=== PATIENT | male | born 1985 | race American Indian/Alaskan Native ===

== ENCOUNTER 2017-01-01 01:13 | Emergency (ER) | payer SELFPAY ==
[2017-01-01] MEDS ORDERED: NACL 0.9% 1000 ML 1,000 ML IV ONE (01:51)
[2017-01-01 02:35] LABS: Basophils % (Auto) 1.1 % (0.0-1.8); Eosinophils % (Auto) 2.8 % (0.0-4.3); Hemoglobin 14.8 gm/dl (11.8-15.2); Mean Corpuscular HGB Conc 33 % (32-34); Mean Corpuscular Volume 73 fl (84-94); Platelet Count 242 K/mm3 (140-440); Red Cell Distribution Width 15.5 % (13.2-15.2); White Blood Count 4.8 K/mm3 (4.5-11.0)
[2017-01-01 02:46] LABS: INR 0.99 (0.87-1.13); Partial Thromboplastin Time 30.5 Sec. (24.2-36.6)
[2017-01-01 02:50] LABS: Mean Corpuscular Hemoglobin 24 pg (28-32)
[2017-01-01 02:53] LABS: Alanine Aminotransferase 11 units/L (7-56); Albumin 4.1 g/dL (3.9-5); Albumin/Globulin Ratio 1.5 %; Alkaline Phosphatase 58 units/L (35-129); Anion Gap 18 mmol/L; BUN/Creatinine Ratio 13; Blood Urea Nitrogen 17 mg/dL (9-20); Calcium 8.8 mg/dL (8.4-10.2); Carbon Dioxide 23 mmol/L (22-30); Chloride 101.3 mmol/L (98-107); Glucose 152 mg/dL (75-100); Lipase 63 units/L (13-60); Potassium 3.9 mmol/L (3.6-5.0); Sodium 138 mmol/L (137-145); Total Protein 6.8 g/dL (6.3-8.2)
[2017-01-01 08:10] VITALS: BP 128/73
--- NOTE | 2017-01-01 10:20 | Emergency Department Report ---
ED GI Bleed HPI - General Chief complaint: GI Bleed Stated complaint: RECTAL BLEEDING Time Seen by Provider: 01/01/17 10:03 Source: patient Mode of arrival: Ambulatory Limitations: No Limitations - History of Present Illness MD complaint: blood on toilet paper -: Gradual Severity scale (0 -10): 0 Improves with: none Worsens with: none Context: hemorrhoids Associated Symptoms: denies other symptoms. denies: abdominal pain, nausea, vomiting, epistaxis, fever/chills, headaches, loss of appetite, malaise, easy bruising, rash, other bleeding, shortness of breath, syncope, weakness - Related Data Previous Rx's Medication Instructions Recorded Last Taken Type Ibuprofen [Motrin 800 MG tab] 800 mg PO Q8H #30 tablet 09/04/14 Unknown Rx methylPREDNISolone [Medrol] 4 mg PO QAM #1 dosepack 12/17/15 Unknown Rx Phenylephrine HCl/[place] Butter 1 each RC DAILY #10 supp.rect 01/01/17 Unknown Rx [Preparation H Suppository] Allergies Allergy/AdvReac Type Severity Reaction Status Date / Time No Known Allergies Allergy Verified 08/26/14 04:57 ED Review of Systems ROS: Stated complaint: RECTAL BLEEDING Other details as noted in HPI Comment: All other systems reviewed and negative Constitutional: no symptoms reported, see HPI Eyes: as per HPI ENT: as per HPI Respiratory: no symptoms reported, see HPI Cardiovascular: as per HPI Endocrine: no symptoms reported, see HPI Gastrointestinal: as per HPI, other (bright red blood). denies: abdominal pain , nausea, vomiting, diarrhea, constipation, hematemesis, melena, hematochezia Genitourinary: as per HPI Musculoskeletal: as per HPI Skin: as per HPI Neurological: as per HPI Psychiatric: as per HPI Hematological/Lymphatic: as per HPI ED Past Medical Hx - Past Medical History Previous Medical History?: No Additional medical history: Rectal bleeding - Surgical History Past Surgical History?: No - Social History Smoking Status: Never Smoker Substance Use Type: None - Medications Home Medications: Home Medications Medication Instructions Recorded Confirmed Last Taken Type Ibuprofen [Motrin 800 MG tab] 800 mg PO Q8H #30 tablet 09/04/14 Unknown Rx methylPREDNISolone [Medrol] 4 mg PO QAM #1 dosepack 12/17/15 Unknown Rx Phenylephrine HCl/[place] Butter 1 each RC DAILY #10 supp.rect 01/01/17 Unknown Rx [Preparation H Suppository] ED Physical Exam - General Limitations: No Limitations General appearance: alert - Head Head exam: Present: atraumatic - Eye Eye exam: Present: normal appearance - ENT ENT exam: Present: normal exam - Neck Neck exam: Present: normal inspection - Respiratory Respiratory exam: Present: normal lung sounds bilaterally - Cardiovascular Cardiovascular Exam: Present: regular rate - GI/Abdominal GI/Abdominal exam: Present: soft, normal bowel sounds - Rectal Rectal exam: Present: hemorrhoids - exam: Present: normal inspection - Extremities Exam Extremities exam: Present: normal inspection - Back Exam Back exam: Present: normal inspection, full ROM. Absent: tenderness, CVA tenderness (R), CVA tenderness (L) - Neurological Exam Neurological exam: Present: alert, oriented X3, CN II-XII intact, reflexes normal - Psychiatric Psychiatric exam: Present: normal affect, normal mood - Skin Skin exam: Present: warm, dry, intact, normal color ED Course Vital Signs 01/01/17 01/01/17 01:42 08:09 Temperature 98.5 F 98.3 F Pulse Rate 66 62 Respiratory 18 16 Rate Blood Pressure 128/74 Blood Pressure 128/74 128/73 [Left] O2 Sat by Pulse 100 100 Oximetry - Reevaluation(s) Reevaluation #1: 01/01/17 to er w bright red blood no melena per family vss no tachy no hypotension no abd pain h/h wnl discussed outpt poc w fam and pt ED Medical Decision Making - Lab Data Result diagrams: 01/01/17 01:59 01/01/17 01:59 - Medical Decision Making stable h/h vss hemorrhoid - Differential Diagnosis upper v lower gi bleed Critical care attestation.: If time is entered above; I have spent that time in minutes in the direct care of this critically ill patient, excluding procedure time. ED Disposition Clinical Impression: Hemorrhoid Disposition: DC-01 TO HOME OR SELFCARE Is pt being admited?: No Does the pt Need Aspirin: No Condition: Stable Instructions: Hemorrhoids (ED) Additional Instructions: avoid constipation high fiber diet drink a lot of water do not strain when lifting SUPPOSITORIES WRITTEN TODAY FOLLOW UP GI IF PERSISTS Prescriptions: Phenylephrine HCl/[place] Butter [Preparation H Suppository] 1 each RC DAILY #10 supp.rect Referrals: MICK CARBAJAL MD [Staff Physician] - 3-5 Days JENARO ROUSE MD [Referring] - 3-5 Days MICHELLE AGUILAR MD [Staff Physician] - 3-5 Days LADI ONEILL MD [Staff Physician] - 3-5 Days Forms: Work/School Release Form(ED) Time of Disposition: 10:18
== END 2017-01-01 10:32 | disposition home or self-care (01) ==
LOC: ED 01:13
DX: K64.9 Unspecified hemorrhoids (principal)
CPT/HCPCS: 36415; 80053; 83690; 85025; 85610; 85730; 86850; 86900; 86901; 93005; 93010; 99284

== ENCOUNTER 2020-10-26 10:19 | Emergency (ER) | payer SELFPAY ==
[2020-10-26 11:53] VITALS: BP 139/84
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
--- NOTE | 2020-10-26 13:13 | XRay Report ---
LEFT KNEE 3 VIEW(S) INDICATION / CLINICAL INFORMATION: knee pain and swelling COMPARISON: None available. FINDINGS: BONES / JOINT(S): No acute fracture or subluxation. No significant arthritis. SOFT TISSUES: No significant abnormality. ADDITIONAL FINDINGS: None. Signer Name: Naman Hodgson MD Signed: 10/26/2020 1:09 PM Workstation Name: [id number] / [id number]
[2020-10-26 15:39] LABS: Basophils % (Auto) 0.5 % (0.0-1.8); Eosinophils % (Auto) 0.4 % (0.0-4.3); Hematocrit 50.4 % (35.5-45.6); Hemoglobin 16.3 gm/dl (11.8-15.2); Lymphocytes # (Auto) 1.1 K/mm3 (1.2-5.4); Mean Corpuscular HGB Conc 32 % (32-34); Mean Corpuscular Volume 75 fl (84-94); Monocytes # (Auto) 0.6 K/mm3 (0.0-0.8); Platelet Count 235 K/mm3 (140-440); Red Blood Count 6.76 M/mm3 (3.65-5.03); Red Cell Distribution Width 15.4 % (13.2-15.2)
[2020-10-26 15:43] LABS: Alanine Aminotransferase 11 units/L (7-56); Albumin 3.7 g/dL (3.9-5); BUN/Creatinine Ratio 12; Blood Urea Nitrogen 13 mg/dL (9-20); Calcium 9.1 mg/dL (8.4-10.2); Hemolysis Index 7
[2020-10-26 16:06] LABS: Erythrocyte Sedimentation Rate 1 mm/Hr (0-20)
[2020-10-26] MEDS ORDERED: KETOROLAC 30 MG/1 ML INJ IV ONE (17:39)
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
== END 2020-10-26 19:23 | disposition home or self-care (01) ==
LOC: ED 10:19
DX: L03.116 Cellulitis of left lower limb (principal); Z79.899 Other long term (current) drug therapy; Z98.890 Other specified postprocedural states
CPT/HCPCS: 36415; 73562; 80053; 85025; 85652; 86140; 96361; 96365; 99283; J1885

== ENCOUNTER 2021-03-18 01:06 | Emergency (ER) | payer SELFPAY ==
[2021-03-18] MEDS ORDERED: LIDOCAINE (1%) 10 MG/1 ML VIAL 20 ML MDV ONE (01:30)
--- NOTE | 2021-03-18 01:44 | Emergency Department Report ---
ED Upper Extremity Inj HPI - General Chief Complaint: Extremity Injury, Upper Stated Complaint: FINGER INJURY Time Seen by Provider: 03/18/21 01:23 Source: patient Mode of arrival: Ambulatory Limitations: No Limitations - History of Present Illness Initial Comments: Patient is 35 years old male with no significant past medical history. Patient presented to the ER complaining of amputation of the tip of his left index finger. Patient stated that he was working on a car when he saw his finger accidentally. Patient denied any other injuries. Patient does not have the tip of the finger with him and he does not know where is it. Bleeding controlled. Patient received digital block and that helped a lot with his pain. MD Complaint: Injury to:: left, finger - Related Data Previous Rx's Medication Instructions Recorded Last Taken Type Ibuprofen [Motrin 800 MG tab] 800 mg PO Q8H #30 tablet 09/04/14 Unknown Rx methylPREDNISolone [Medrol] 4 mg PO QAM #1 dosepack 12/17/15 Unknown Rx Phenylephrine HCl/[place] Butter 1 each RC DAILY #10 supp.rect 01/01/17 Unknown Rx [Preparation H Suppository] Acetaminophen/Codeine [Tylenol 1 tab PO Q6H PRN #12 tab 10/26/20 Unknown Rx /Codeine # 3 tab] Clindamycin [Clindamycin CAP] 300 mg PO Q6H 10 Days #40 cap 10/26/20 Unknown Rx Ibuprofen [Motrin 800 MG tab] 800 mg PO Q8HR PRN #20 tablet 10/26/20 Unknown Rx Allergies Allergy/AdvReac Type Severity Reaction Status Date / Time No Known Allergies Allergy Verified 03/18/21 01:20 ED Review of Systems ROS: Stated complaint: FINGER INJURY Other details as noted in HPI Comment: All other systems reviewed and negative Constitutional: denies: chills, fever Cardiovascular: denies: chest pain Musculoskeletal: denies: back pain ED Past Medical Hx - Past Medical History Previous Medical History?: No Additional medical history: Rectal bleeding - Surgical History Past Surgical History?: No - Social History Smoking Status: Never Smoker Substance Use Type: None - Medications Home Medications: Home Medications Medication Instructions Recorded Confirmed Last Taken Type Ibuprofen [Motrin 800 MG tab] 800 mg PO Q8H #30 tablet 09/04/14 Unknown Rx methylPREDNISolone [Medrol] 4 mg PO QAM #1 dosepack 10/05/16 Unknown Rx Phenylephrine HCl/[place] Butter 1 each RC DAILY #10 supp.rect 01/01/17 Unknown Rx [Preparation H Suppository] Acetaminophen/Codeine [Tylenol 1 tab PO Q6H PRN #12 tab 10/26/20 Unknown Rx /Codeine # 3 tab] Clindamycin [Clindamycin CAP] 300 mg PO Q6H 10 Days #40 cap 10/26/20 Unknown Rx Ibuprofen [Motrin 800 MG tab] 800 mg PO Q8HR PRN #20 tablet 10/26/20 Unknown Rx ED Physical Exam - General Limitations: No Limitations General appearance: alert, in no apparent distress - Head Head exam: Present: atraumatic, normocephalic, normal inspection - Eye Eye exam: Present: normal appearance - ENT ENT exam: Present: normal exam, normal orophraynx, mucous membranes moist - Neck Neck exam: Present: normal inspection, full ROM. Absent: tenderness, meningismu s - Respiratory Respiratory exam: Present: normal lung sounds bilaterally - Cardiovascular Cardiovascular Exam: Present: regular rate, normal rhythm, normal heart sounds - Extremities Exam Extremities exam: Present: other (Left index finger with complete amputation of the tip of the finger, bleeding controlled.) - Back Exam Back exam: Present: normal inspection - Neurological Exam Neurological exam: Present: alert, oriented X3, CN II-XII intact - Psychiatric Psychiatric exam: Present: normal mood ED Course Vital Signs 03/18/21 03/18/21 01:14 01:17 Temperature 98.5 F Pulse Rate 78 Respiratory 19 Rate Blood Pressure 158/85 O2 Sat by Pulse 100 Oximetry - Laceration /Wound Repair Left Finger Wound's Depth, Shape: irregular, flap Wound Explored: clean Anesthesia: 1% Lidocaine Suture Size/Type: 4:0 Sterile Dressing Applied?: Yes ED Medical Decision Making - Radiology Data Radiology results: report reviewed - Medical Decision Making Patient is 35 years old male with no significant past medical history. Patient presented to the ER complaining of amputation of the tip of his left index finger. Patient stated that he was working on a car when he saw his finger accidentally. Patient denied any other injuries. Patient does not have the tip of the finger with him and he does not know where is it. Bleeding controlled. Patient received digital block and that helped a lot with his pain. X-ray showed traumatic amputation of the tip of the index finger of the left side. I approximated the edges of the skin and dry dressing was pressure applied. Patient stated that he received tetanus shot approximately 2 months ago. Patient given prescription for Keflex, tramadol and Zofran and advised to follow-up with Dr. Stoo in the next 2 to 3 days and to return to the ER if he develop any new symptoms. Critical care attestation.: If time is entered above; I have spent that time in minutes in the direct care of this critically ill patient, excluding procedure time. ED Disposition Clinical Impression: Traumatic amputation of finger tip Disposition: 01 HOME / SELF CARE / HOMELESS Is pt being admited?: No Condition: Stable Instructions: Traumatic Finger Amputation Referrals: DEX SOTO MD [Staff Physician] - 3-5 Days
--- NOTE | 2021-03-18 02:20 | XRay Report ---
LEFT FINGER, 3 VIEWS INDICATION / CLINICAL INFORMATION: Left index finger injury.. COMPARISON: None available. FINDINGS: There has been traumatic amputation of the distal aspect of the index finger. The distal portion of t he distal phalanx to include the phalangeal tuft is absent. The remainder of the index finger is unre markable. IMPRESSION: Traumatic amputation of the tip of the index finger. Signer Name: Yeimi Espinoza MD Signed: 03/18/2021 2:16 AM Workstation Name: [id number]
[2021-03-18 03:08] VITALS: BP 139/78
[2021-03-18] MEDS: TETANUS,DIPH,PERTUSS(ACELL) VACCINE 0.5 ML SYRINGE IM ONE ×2 (03:12→03:23)
== END 2021-03-18 03:29 | disposition home or self-care (01) ==
LOC: ED 01:06
DX: S61.211A Laceration without foreign body of left index finger without damage to nail, initial encounter (principal); S68.111A Complete traumatic metacarpophalangeal amputation of left index finger, initial encounter; W27.8XXA Contact with other nonpowered hand tool, initial encounter; Y93.89 Activity, other specified; Y92.89 Other specified places as the place of occurrence of the external cause; Y99.8 Other external cause status
CPT/HCPCS: 12001; 73140; 90471; 90715; 99283; J3490